=== PATIENT | male | born 1995 | race Caucasian/White ===

== ENCOUNTER 2017-01-18 07:31 | Inpatient (IN) | payer OTHER ==
[2017-01-18] MEDS ORDERED: SODIUM CHLORIDE 0.9% 1,000 ML IV STA (08:04)
[2017-01-18] MEDS ORDERED: SODIUM CHLORIDE 0.9% 2,000 ML IV STA (08:04)
[2017-01-18] MEDS ORDERED: RX INFO: IV CONTRAST WAS GIVEN 1 EACH MISC MISCELLANE PRN (08:04)
[2017-01-18] MEDS ORDERED: ACETAMINOPHEN TAB 500 MG TAB PO STA (08:05)
[2017-01-18] MEDS ORDERED: IBUPROFEN 600 MG TAB PO STA (08:07)
[2017-01-18] MEDS ORDERED: MORPHINE SULFATE 4 MG/ML SYRINGE IVP STA (08:07)
[2017-01-18] MEDS: ONDANSETRON 4 MG/2 ML VIAL IVP STA ×2 (08:13→16:20)
[2017-01-18 08:26] LABS: Basophils % (A) 0 %; CH 28.8; CHCM 35.6; Eosinophils % (A) 0 %; HCT 44.4 % (39.0-53.0); HDW 2.73; HGB 15.8 gm/dL (13.0-17.5); Luc # (Auto) 0.15; Luc % (Auto) 1; Lymphocytes # (A) 1.3 k/uL (1.0-4.8); Lymphocytes % (A) 10 %; MCHC 35.6 g/dL (31.0-37.0); MCV 81.4 fL (80.0-100.0); Mean Platelet Volume 7.3; Monocytes # (A) 0.7 k/uL (0-1.0); Monocytes % (A) 5 %; Neutrophils # (A) 10.7 k/uL (1.3-7.7); Neutrophils % (A) 83 %; RBC 5.46 m/uL (4.30-5.90); RDW 12.5 % (11.5-15.5); WBC 12.9 k/uL (3.8-10.6); WBC (Perox) 12.67
--- NOTE | 2017-01-18 08:31 | ED ---
Abdominal Pain HPI - General Chief Complaint: Abdominal Pain Stated Complaint: ABDOMINAL PAIN Time Seen by Provider: 01/18/17 07:54 Source: patient, RN notes reviewed, old records reviewed Mode of arrival: ambulatory Limitations: no limitations - History of Present Illness Initial Comments: This is a 22-year-old male presenting to emergency Department with his mother chief complaint of severe lower abdominal pain for the past day and half. Patient reports it started yesterday and became progressively worse and today. Patient states that feels like a sharp stabbing lower pain. Patient denies any significant medical history or surgical history. He reports he is generally very healthy. Patient reports that he does occasionally suffer from constipation. Initial events when he thought the pain was related to. Patient reports he feels extremely fevers and chilled and has had multiple episodes of vomiting. Denies any abnormal bowel movements lately but he did have some Metamucil last night, IDDM to go to the bathroom. - Related Data Home Medications Medication Instructions Recorded Confirmed No Known Home Medications [No 01/18/17 01/18/17 Known Home Medications] Allergies Allergy/AdvReac Type Severity Reaction Status Date / Time No Known Allergies Allergy Verified 01/18/17 08:16 Review of Systems ROS Statement: Those systems with pertinent positive or pertinent negative responses have been documented in the HPI. ROS Other: All systems not noted in ROS Statement are negative. Past Medical History Past Medical History: No Reported History History of Any Multi-Drug Resistant Organisms: None Reported Past Surgical History: No Surgical Hx Reported Past Psychological History: No Psychological Hx Reported Smoking Status: Never smoker Past Alcohol Use History: None Reported Past Drug Use History: None Reported General Exam - General Exam Comments Initial Comments: This is a ill-appearing 22-year-old male. Patient appears in discomfort. Limitations: no limitations General appearance: alert, in no apparent distress Head exam: Present: atraumatic, normocephalic, normal inspection Eye exam: Present: normal appearance, PERRL, EOMI. Absent: scleral icterus, conjunctival injection, periorbital swelling ENT exam: Present: normal exam, mucous membranes moist Neck exam: Present: normal inspection. Absent: tenderness, meningismus, lymphadenopathy Respiratory exam: Present: normal lung sounds bilaterally. Absent: respiratory distress, wheezes, rales, rhonchi, stridor Cardiovascular Exam: Present: regular rate, normal rhythm, normal heart sounds. Absent: systolic murmur, diastolic murmur, rubs, gallop, clicks GI/Abdominal exam: Present: soft, tenderness (Patient has significant periumbilical and right lower quadrant tenderness.), guarding, normal bowel sounds. Absent: distended, rigid Extremities exam: Present: normal inspection, full ROM, normal capillary refill. Absent: tenderness, pedal edema, joint swelling, calf tenderness Back exam: Present: normal inspection Neurological exam: Present: alert, oriented X3, CN II-XII intact Psychiatric exam: Present: normal affect, normal mood Skin exam: Present: warm, dry, intact, normal color. Absent: rash Course Vital Signs 01/18/17 01/18/17 01/18/17 07:34 08:04 08:46 Temperature 97.6 F 101.1 F H 99.3 F Pulse Rate 102 H 86 Respiratory 18 18 Rate Blood Pressure 116/81 115/59 O2 Sat by Pulse 97 97 Oximetry 01/18/17 09:44 Temperature Pulse Rate 78 Respiratory 18 Rate Blood Pressure 115/59 O2 Sat by Pulse 97 Oximetry - Reevaluation(s) Reevaluation #1: 01/18/17 09:57 Patient has significant improvement of his pain at this time. Patient started on IV Unasyn and Flagyl. Dr. Cyr Will discuss this case with Dr. Betancourt. Medical Decision Making - Medical Decision Making 22-year-old male presenting to emergency department with 2 days of lower abdominal pain. Patient noted to have a fever 101.1 in the emergency department. Patient is a IV fluids, lactic acid blood cultures obtained as well as rest of the labs. Patient started on 2 L bolus. Given Motrin Tylenol and morphine for pain medication. Patient was started on IV Unasyn and Flagyl. Patient did have elevated lactic acid of 2.3. Patient has evidence of leukocytosis 12.3. CT abdomen and pelvis was performed. It was a suboptimal study is patient does not have very much abdominal fat. Patient does have some free fluid in the pelvis, and dilated appendix up to 10 mm. Patient's clinical symptoms with a severe right lower quadrant pain and fevers and is consistent with acute appendicitis. Discussed case with Dr. Cyr. He will discuss this with . He'll be admitted to Dr. Betancourt for surgery. - Lab Data Result diagrams: 01/18/17 07:45 01/18/17 07:45 Lab Results 01/18/17 01/18/17 01/18/17 Range/Units 07:45 07:45 07:45 WBC 12.9 H (3.8-10.6) k/uL RBC 5.46 (4.30-5.90) m/uL Hgb 15.8 (13.0-17.5) gm/dL Hct 44.4 (39.0-53.0) % MCV 81.4 (80.0-100.0) fL MCH 29.0 (25.0-35.0) pg MCHC 35.6 (31.0-37.0) g/dL RDW 12.5 (11.5-15.5) % Plt Count 206 (150-450) k/uL Neutrophils % 83 % Lymphocytes % 10 % Monocytes % 5 % Eosinophils % 0 % Basophils % 0 % Neutrophils # 10.7 H (1.3-7.7) k/uL Lymphocytes # 1.3 (1.0-4.8) k/uL Monocytes # 0.7 (0-1.0) k/uL Eosinophils # 0.0 (0-0.7) k/uL Basophils # 0.0 (0-0.2) k/uL PT (9.0-12.0) sec INR (<1.2) APTT (22.0-30.0) sec Sodium 138 (137-145) mmol/L Potassium 4.5 (3.5-5.1) mmol/L Chloride 98 (98-107) mmol/L Carbon Dioxide 24 (22-30) mmol/L Anion Gap 16 mmol/L BUN 12 (9-20) mg/dL Creatinine 0.93 (0.66-1.25) mg/dL Est GFR (MDRD) Af Amer >60 (>60 ml/min/1.73 sqM) Est GFR (MDRD) Non-Af >60 (>60 ml/min/1.73 sqM) Glucose 136 H (74-99) mg/dL Plasma Lactic Acid Usman 2.1 H* (0.7-2.0) mmol/L Calcium 10.2 (8.4-10.2) mg/dL Total Bilirubin 2.3 H (0.2-1.3) mg/dL AST 20 (17-59) U/L ALT 21 (21-72) U/L Alkaline Phosphatase 55 (38-126) U/L Total Protein 8.6 H (6.3-8.2) g/dL Albumin 5.3 H (3.5-5.0) g/dL Amylase 40 (30-110) U/L Lipase 47 (23-300) U/L Urine Color Urine Appearance (Clear) Urine pH (5.0-8.0) Urine Protein (Negative) Urine Glucose (UA) (Negative) Urine Ketones (Negative) Urine Blood (Negative) Urine Nitrite (Negative) Urine Bilirubin (Negative) Urine Urobilinogen (<2.0) mg/dL Ur Leukocyte Esterase (Negative) Urine RBC (0-5) /hpf Urine WBC (0-5) /hpf Urine Mucus (None) /hpf Blood Type Blood Type Recheck Antibody Screen Spec Expiration Date 01/18/17 01/18/17 01/18/17 Range/Units 07:45 09:07 09:12 WBC (3.8-10.6) k/uL RBC (4.30-5.90) m/uL Hgb (13.0-17.5) gm/dL Hct (39.0-53.0) % MCV (80.0-100.0) fL MCH (25.0-35.0) pg MCHC (31.0-37.0) g/dL RDW (11.5-15.5) % Plt Count (150-450) k/uL Neutrophils % % Lymphocytes % % Monocytes % % Eosinophils % % Basophils % % Neutrophils # (1.3-7.7) k/uL Lymphocytes # (1.0-4.8) k/uL Monocytes # (0-1.0) k/uL Eosinophils # (0-0.7) k/uL Basophils # (0-0.2) k/uL PT 12.3 H (9.0-12.0) sec INR 1.2 H (<1.2) APTT 25.1 (22.0-30.0) sec Sodium (137-145) mmol/L Potassium (3.5-5.1) mmol/L Chloride (98-107) mmol/L Carbon Dioxide (22-30) mmol/L Anion Gap mmol/L BUN (9-20) mg/dL Creatinine (0.66-1.25) mg/dL Est GFR (MDRD) Af Amer (>60 ml/min/1.73 sqM) Est GFR (MDRD) Non-Af (>60 ml/min/1.73 sqM) Glucose (74-99) mg/dL Plasma Lactic Acid Usman (0.7-2.0) mmol/L Calcium (8.4-10.2) mg/dL Total Bilirubin (0.2-1.3) mg/dL AST (17-59) U/L ALT (21-72) U/L Alkaline Phosphatase (38-126) U/L Total Protein (6.3-8.2) g/dL Albumin (3.5-5.0) g/dL Amylase (30-110) U/L Lipase (23-300) U/L Urine Color Yellow Urine Appearance Clear (Clear) Urine pH 6.5 (5.0-8.0) Urine Protein Trace H (Negative) Urine Glucose (UA) Negative (Negative) Urine Ketones Negative (Negative) Urine Blood Trace H (Negative) Urine Nitrite Negative (Negative) Urine Bilirubin Negative (Negative) Urine Urobilinogen <2.0 (<2.0) mg/dL Ur Leukocyte Esterase Negative (Negative) Urine RBC 4 (0-5) /hpf Urine WBC <1 (0-5) /hpf Urine Mucus Occasional H (None) /hpf Blood Type A Positive Blood Type Recheck CABO Indicated Antibody Screen NEGATIVE Spec Expiration Date 01/21/2017 - 2307 - Radiology Data Radiology results: report reviewed Acute appendicitis cannot be excluded as detailed above. [id number] amount of free fluid within the pelvis is noted significantly more prominent than typically seen with acute appendicitis. Evaluation in bowel suboptimal secondary to lack of enteric contrast is no abdominal making suboptimal. Moderate thickening of the gastric antrum. No suspicious small or large bowel dilation. Low fecal filled cecum in the right pelvis. Appendix appears in the right pelvis it is dilated up to 10mm with mild irregular mucosal enlargement.There is some mild findings surrounding fluid bolus is present through the majority of the pelvis. Acuteappendicitis cannot be excluded given his findings. No well-formed fluid collection or abscess is present. Disposition Clinical Impression: Acute appendicitis Disposition: ADMITTED IP TO THIS [facility] Condition: Stable Referrals: Shreyas Hutchinson MD [Primary Care Provider] - 1-2 days Time of Disposition: 10:02
[2017-01-18 08:37] LABS: ALT 21 U/L (21-72); AST 20 U/L (17-59); Alkaline Phosphatase 55 U/L (38-126); Amylase 40 U/L (30-110); Anion Gap 16 mmol/L; Blood Urea Nitrogen 12 mg/dL (9-20); Calcium 10.2 mg/dL (8.4-10.2); Carbon Dioxide 24 mmol/L (22-30); Chloride 98 mmol/L (98-107); Glucose 136 mg/dL (74-99); Non-African American GFR(MDRD) >60 (>60 ml/min/1.73 sqM); Potassium 4.5 mmol/L (3.5-5.1); Sodium 138 mmol/L (137-145); Total Bilirubin 2.3 mg/dL (0.2-1.3); Total Protein 8.6 g/dL (6.3-8.2)
[2017-01-18 08:45] LABS: INR 1.2 (<1.2); Partial Thromboplastin Time 25.1 sec (22.0-30.0); Prothrombin Time 12.3 sec (9.0-12.0)
--- NOTE | 2017-01-18 08:57 | CT ---
EXAMINATION TYPE: CT abdomen pelvis w con DATE OF EXAM: 01/18/2017 COMPARISON: NONE HISTORY: Patient complains of RLQ pain, nausea, vomiting, and fever. Rule out appendicitis. CT DLP: 643 mGycm, Automated Exposure Control for Dose Reduction was Utilized. CONTRAST: CT scan of the abdomen and pelvis is performed without oral but with with IV Contrast, patient inject ed with 100 mL of Omnipaque 300. FINDINGS: LUNG BASES: No significant abnormality is appreciated. LIVER/GB: No significant abnormality is appreciated. PANCREAS: There is asymmetric fullness in the pancreatic head near axial image 29 without obvious mas s or ductal dilatation. SPLEEN: Spleen is mildly enlarged at 13.6 cm on long axis on coronal image 40 ADRENALS: No significant abnormality is seen. KIDNEYS: No significant abnormality is seen. BOWEL: Evaluation bowel is suboptimal secondary to lack of enteric contrast. In addition patient has virtually no intra-abdominal fat making evaluation suboptimal. There is nonspecific moderate wall thi ckening at level of gastric antrum near axial image 32. There is no suspicious small or large bowel d ilatation. There is low lying fecal filled cecum to the right pelvis. Appendix is identified in the r ight pelvis seen best on coronal images 37 through 50 and corresponding axial images 61 through 63. I t is dilated up to 10 mm with mild irregular mucosal enhancement. There is some ill-defined surroundi ng fluid though this is present throughout majority of pelvis. Acute appendicitis cannot be excluded given these findings. No well-formed fluid collection or abscess is present. No pneumoperitoneum is i dentified. PROSTATE/SEMINAL VESICLES: No gross abnormality seen. LYMPH NODES: No greater than 1cm abdominal or pelvic lymph nodes are appreciated. There are prominen t but subcentimeter lymph nodes in the lower abdominal mesentery. OSSEOUS STRUCTURES: No significant abnormality is seen. OTHER: There is small to moderate amount of free fluid in the pelvis seen best on axial image 64. IMPRESSION: Acute appendicitis cannot be excluded as detailed above. Small to moderate amount of free fluid in pelvis is noted slightly more prominent than typically seen with acute appendicitis.
[2017-01-18] MEDS ORDERED: metroNIDAZOLE-NS PMX 500 MG in SALINE 1 100ML.BAG IVPB STA (09:29)
[2017-01-18] MEDS ORDERED: AMPICILLIN-SULBACTAM 3 GM in SODIUM CHLORIDE 0.9% 100 ML IVPB STA (09:29)
[2017-01-18 09:39] LABS: Appearance,Urine Clear (Clear); Bilirubin,Urine Negative (Negative); Glucose,Urine (UA) Negative (Negative); Ketones,Urine Negative (Negative); Leukocyte Esterase,Urine Negative (Negative); Mucus,Urine Occasional /hpf; Nitrite,Urine Negative (Negative); PH, Urine 6.5 (5.0-8.0); Particle Count 2340; Protein,Urine Trace (Negative); RBC,Urine 4 /hpf (0-5); UA Billing (MACRO vs. MICRO) MICRO; Urobilinogen,Urine <2.0 mg/dL (<2.0); WBC,Urine <1 /hpf (0-5)
[2017-01-18] MEDS ORDERED: NALOXONE 0.4 MG/ML 1 ML VIAL IV PRN (10:02)
[2017-01-18] MEDS ORDERED: IBUPROFEN 400 MG TAB PO PRN (10:02)
[2017-01-18] MEDS ORDERED: ONDANSETRON 4 MG/2 ML VIAL IVP PRN (10:02)
[2017-01-18] MEDS ORDERED: ACETAMINOPHEN TAB 325 MG TAB PO PRN (10:02)
[2017-01-18] MEDS ORDERED: KETOROLAC 30 MG/ML 1 ML VIAL IVP PRN (10:02)
[2017-01-18 10:39] LABS: Specific Gravity,Urine >1.050 (1.001-1.035)
[2017-01-18 11:20] VITALS: BMI 16.9
--- NOTE | 2017-01-18 14:10 | P.GSHP ---
History of Present Illness H&P Date: 01/18/17 Chief Complaint: Appendicitis The patient is a 22-year-old who presented to the emergency department with severe abdominal pain today. Noticed discomfort yesterday morning. It got progressively worse. This morning it was severe and doubling him over. He feels better this afternoon. The CT scan was suggestive of acute appendicitis. He felt worse this morning with the pain doubling him over. He had not been ill previously. No previous abdominal surgeries. No nausea or vomiting. - Review of Systems All systems: negative (He does have trouble with constipation from time to time) Past Medical History Past Medical History: No Reported History History of Any Multi-Drug Resistant Organisms: None Reported Past Surgical History: No Surgical Hx Reported Past Anesthesia/Blood Transfusion Reactions: No Reported Reaction Past Psychological History: No Psychological Hx Reported Smoking Status: Never smoker Past Alcohol Use History: None Reported Past Drug Use History: None Reported - Past Family History Father Family Medical History: No Reported History Mother Family Medical History: No Reported History Medications and Allergies Home Medications Medication Instructions Recorded Confirmed Type No Known Home Medications [No 01/18/17 01/18/17 History Known Home Medications] Allergies Allergy/AdvReac Type Severity Reaction Status Date / Time No Known Allergies Allergy Verified 01/18/17 08:16 Surgical - Exam Osteopathic Statement: *. No significant issues noted on an osteopathic structural exam other than those noted in the History and Physical/Consult. Vital Signs Temp Pulse Resp BP Pulse Ox 97.6 F 102 H 18 116/81 97 01/18/17 07:34 01/18/17 07:34 01/18/17 07:34 01/18/17 07:34 01/18/17 07:34 - General well developed, well nourished, no distress - Eyes normal ocular movement - ENT normal mucosa, no hearing loss - Neck trachea midline - Respiratory normal expansion, normal respiratory effort, clear to auscultation - Cardiovascular Rhythm: regular - Abdomen Abdomen: soft, tender (Lower quadrant), bowel sounds Hernia: no umbilical - Psychiatric oriented to time, oriented to person, oriented to place, speech is normal, memory intact Results - Labs 01/18/17 07:45 01/18/17 07:45 Abnormal Lab Results - Last 24 Hours (Table) 01/18/17 01/18/17 01/18/17 Range/Units 07:45 07:45 07:45 WBC 12.9 H (3.8-10.6) k/uL Neutrophils # 10.7 H (1.3-7.7) k/uL PT (9.0-12.0) sec INR (<1.2) Glucose 136 H (74-99) mg/dL Plasma Lactic Acid Usman 2.1 H* (0.7-2.0) mmol/L Total Bilirubin 2.3 H (0.2-1.3) mg/dL Total Protein 8.6 H (6.3-8.2) g/dL Albumin 5.3 H (3.5-5.0) g/dL Ur Specific [place] (1.001-1.035) Urine Protein (Negative) Urine Blood (Negative) Urine Mucus (None) /hpf 01/18/17 01/18/17 Range/Units 07:45 09:12 WBC (3.8-10.6) k/uL Neutrophils # (1.3-7.7) k/uL PT 12.3 H (9.0-12.0) sec INR 1.2 H (<1.2) Glucose (74-99) mg/dL Plasma Lactic Acid Usman (0.7-2.0) mmol/L Total Bilirubin (0.2-1.3) mg/dL Total Protein (6.3-8.2) g/dL Albumin (3.5-5.0) g/dL Ur Specific [place] >1.050 H (1.001-1.035) Urine Protein Trace H (Negative) Urine Blood Trace H (Negative) Urine Mucus Occasional H (None) /hpf Diabetes panel 01/18/17 Range/Units 07:45 Sodium 138 (137-145) mmol/L Potassium 4.5 (3.5-5.1) mmol/L Chloride 98 (98-107) mmol/L Carbon Dioxide 24 (22-30) mmol/L BUN 12 (9-20) mg/dL Creatinine 0.93 (0.66-1.25) mg/dL Glucose 136 H (74-99) mg/dL Calcium 10.2 (8.4-10.2) mg/dL AST 20 (17-59) U/L ALT 21 (21-72) U/L Alkaline Phosphatase 55 (38-126) U/L Total Protein 8.6 H (6.3-8.2) g/dL Albumin 5.3 H (3.5-5.0) g/dL Calcium panel 01/18/17 Range/Units 07:45 Calcium 10.2 (8.4-10.2) mg/dL Albumin 5.3 H (3.5-5.0) g/dL Pituitary panel 01/18/17 Range/Units 07:45 Sodium 138 (137-145) mmol/L Potassium 4.5 (3.5-5.1) mmol/L Chloride 98 (98-107) mmol/L Carbon Dioxide 24 (22-30) mmol/L BUN 12 (9-20) mg/dL Creatinine 0.93 (0.66-1.25) mg/dL Glucose 136 H (74-99) mg/dL Calcium 10.2 (8.4-10.2) mg/dL Adrenal panel 01/18/17 Range/Units 07:45 Sodium 138 (137-145) mmol/L Potassium 4.5 (3.5-5.1) mmol/L Chloride 98 (98-107) mmol/L Carbon Dioxide 24 (22-30) mmol/L BUN 12 (9-20) mg/dL Creatinine 0.93 (0.66-1.25) mg/dL Glucose 136 H (74-99) mg/dL Calcium 10.2 (8.4-10.2) mg/dL Total Bilirubin 2.3 H (0.2-1.3) mg/dL AST 20 (17-59) U/L ALT 21 (21-72) U/L Alkaline Phosphatase 55 (38-126) U/L Total Protein 8.6 H (6.3-8.2) g/dL Albumin 5.3 H (3.5-5.0) g/dL - Imaging CT scan - abdomen: report reviewed, image reviewed Assessment and Plan (1) Acute appendicitis Status: Acute Plan: Laparoscopic appendectomy possible open. The procedure risks and complications were discussed. Questions were encouraged and answered. We'll do that for him this afternoon.
[2017-01-18] MEDS: MORPHINE SULFATE 4 MG/ML SYRINGE IV PRN (14:22)
[2017-01-18] MEDS ORDERED: IV FLUID CONTINUATION 625 ML IV ONE (15:59)
[2017-01-18] MEDS ORDERED: BUPIVACAINE-EPI 0.5%-1:200,000 10 ML VIAL SQ ONE ×2 (16:38)
[2017-01-18] MEDS ORDERED: FUROSEMIDE 10 MG/ML 2 ML VIAL ONE (16:43)
[2017-01-18] MEDS ORDERED: PROPOFOL 10 MG/ML 20 ML VIAL IV ONE (16:43)
[2017-01-18] MEDS ORDERED: GLYCOPYRROLATE 0.2 MG/ML 2 ML VIAL ONE (16:43)
[2017-01-18] MEDS ORDERED: LIDOCAINE 1% INJ 10MG/ML (20 ML MDV) ONE (16:43)
[2017-01-18] MEDS ORDERED: NEOSTIGMINE 1 MG/ML 10 ML VIAL ONE (16:43)
[2017-01-18] MEDS ORDERED: MIDAZOLAM 2 MG/2 ML VIAL ONE (16:43)
[2017-01-18] MEDS ORDERED: SUCCINYLCHOLINE CHLORIDE 100 MG/5 ML SYR IV ONE (16:43)
[2017-01-18] MEDS ORDERED: MEPERIDINE 50 MG/ML SYRINGE ONE (16:43)
[2017-01-18] MEDS ORDERED: fentaNYL (PF) 50 MCG/ML 2 ML AMP ONE (16:43)
[2017-01-18] MEDS ORDERED: ROCURONIUM BROMIDE 10 MG/ML 10 ML VIAL IV ONE (16:43)
[2017-01-18] MEDS ORDERED: LACTATED RINGERS 1,000 ML IV ONE ×2 (16:50→17:53)
[2017-01-18] MEDS ORDERED: ERTAPENEM 1 GM in SODIUM CHLORIDE 0.9% 50 ML IVPB STA (17:02)
[2017-01-18] MEDS ORDERED: HYDROcodone/APAP 5-325MG 1 EACH TAB PO PRN (17:50)
[2017-01-18] MEDS ORDERED: METOCLOPRAMIDE 5 MG/ML 2 ML VIAL IVP PRN (17:50)
[2017-01-18] MEDS ORDERED: HYDROmorphone 1 MG/ML 1 ML SYRINGE IVP PRN (17:50)
--- NOTE | 2017-01-18 17:50 | P.OP ---
Date of Procedure: 01/18/17 Preoperative Diagnosis: Acute appendicitis Postoperative Diagnosis: Acute separative appendicitis Procedure(s) Performed: Laparoscopic appendectomy with drain placement Implants: Anesthesia: ROBYN Surgeon: Radha Betancourt Estimated Blood Loss (ml): 10 Pathology: other (Appendix) Condition: stable Disposition: PACU Indications for Procedure: The patient presented with abdominal pain and CT suggestive of appendicitis Operative Findings: He has evidence of acute appendicitis with separation. No obvious perforation. There is some exudate and cloudy fluid in the paracolic gutter and cul-de- sac. A little bit over the liver. The liver diaphragm large and small bowel are otherwise normal where they were seen. Description of Procedure: The patient's taken the operative suite where he is prepped and draped in the usual sterile manner under general endotracheal anesthetic. An infraumbilical incision was made. A varies needle was placed into the abdominal cavity. Pneumoperitoneum was established with CO2 gas. Sites are chosen for accessory trochars and these are placed through small skin incisions. The abdominal and pelvic contents were examined with findings as described above. The appendix is grasped. The mesial appendix is divided with harmonic scissors to the base. The base is fairly broad. It is transected with a TRUPTI stapler. The appendix is then lysed into a specimen retrieval bag. The pelvic fluid was aspirated. The pelvis, paracolic gutter, and fluid by the liver then irrigated and aspirated. A channel drain is then placed. It's allowed to lay along the right paracolic gutter and down into the pelvis. The pneumoperitoneum was then removed. The trochars were removed. The specimen retrieval bag was removed. The fascia at the umbilicus was closed with 0 Vicryl. The skin incisions were closed with samantha. Dressings were applied. He tolerated the procedure without difficulty and was taken recovery room in satisfactory condition. According to or personnel, WERE correct.
[2017-01-18] MEDS ORDERED: D5-0.45% NACL WITH KCL 20MEQ/L 1,000 ML IV SCH (18:00)
[2017-01-18] MEDS: SODIUM CHLORIDE 0.9% 1,000 ML IV SCH ×2 (19:10→23:00)
[2017-01-18] MEDS ORDERED: PROPOFOL 1,000 MG/100 ML VIAL IV SCH (19:15)
--- NOTE | 2017-01-18 19:18 | XR ---
EXAMINATION TYPE: XR chest 1V portable DATE OF EXAM: 01/18/2017 COMPARISON: NONE HISTORY: Respiratory distress TECHNIQUE: Single upright frontal view of the chest is obtained. FINDINGS: The endotracheal tube tip projects over the mid trachea, at a level between the clavicular heads and the héctor. There is no pneumothorax. There are no other abnormal gas collection. The stomach, however, is noted to be gas-distended. The pulmonary vasculature is completely silhouetted by a severe and symmetric fine reticular pattern of increased density reaching the periphery as septal lines and associated with fissure thickening. T here are a few scattered associated areas of lung consolidation. These findings are consistent with m arked interstitial phase pulmonary edema, with concurrent alveolar phase pulmonary edema. The cardiac silhouette is normal in size. The mediastinal silhouette, and skeletal structures and sof t tissues are unremarkable. IMPRESSION: MARKED INTERSTITIAL PHASE PULMONARY EDEMA WITH CONCURRENT BILATERAL AREAS OF ALVEOLAR PHASE PULMONARY EDEMA.
[2017-01-18 19:48] LABS: ABG HCO3 26 mmol/L (21-25); ABG PCO2 49 mmHg (35-45); ABG PH 7.35 (7.35-7.45); ABG PO2 253 mmHg (83-108); ABG TCO2 26 mmol/L (19-24)
[2017-01-18] MEDS: MIDAZOLAM 2 MG/2 ML VIAL IVP ONE ×2 (20:10→20:12)
[2017-01-18 20:25] LABS: Glucose,Whole Blood 106 mg/dL (75-99)
[2017-01-18 21:59] LABS: Glucose,Whole Blood 99 mg/dL (75-99)
[2017-01-18] MEDS ORDERED: ACETAMINOPHEN IV (For NPO) 1,000 MG in EMPTY BAG 1 BAG IVPB PRN (22:00)
[2017-01-18] MEDS ORDERED: SODIUM CHLORIDE 0.9% 1,000 ML IV ONE (22:01)
--- NOTE | 2017-01-18 23:05 | CT ---
EXAM: CT Head Without Intravenous Contrast CLINICAL HISTORY: Reason: Neurologic changes, new strabismus. Recently postop appendectomy TECHNIQUE: Axial computed tomography images of the head/brain without intravenous contrast. CTDI is 42.60 mGy and DLP is 832.60 mGy-cm. This CT exam was performed using one or more of the following dose reduction techniques: automated exposure control, adjustment of the mA and/or kV according to patient size, and/or use of iterative reconstruction technique. COMPARISON: No relevant prior studies available. FINDINGS: Brain: Unremarkable. No hemorrhage. No midline shift, mass effect or edema. No identifiable acute or recent territorial infarct. Ventricles: Unremarkable. No hydrocephalus. Bones/joints: Unremarkable. No acute fracture. Soft tissues: Unremarkable. Sinuses: Unremarkable as visualized. No acute sinusitis. Mastoid air cells: Unremarkable as visualized. No mastoid effusion. Other findings: Slightly divergent gaze. IMPRESSION: No acute intracranial abnormality is seen to account for the patient's symptoms, as above.
--- NOTE | 2017-01-18 23:13 | P.CNPUL ---
History of Present Illness Consult date: 01/18/17 Requesting physician: Radha Betancourt Reason for consult: other (Postoperative respiratory failure requiring reintubation, noncardiogenic pulmonary edema.) Chief complaint: Failure to wean post appendectomy, patient was reintubated in recovery. History of present illness: This is a 22-year-old white male presented earlier today to the emergency room with severe abdominal pain of one and a half days in duration. CT of the abdomen was suggestive of acute appendicitis. Patient was in severe pain almost doubling over earlier before presenting to the ER. Patient was seen by Dr. Betancourt on consultation, and he underwent laparoscopic appendectomy. And her operative report, the patient was found to have acute appendicitis with separation, some exudate and cloudy fluid was noted in that the colic gutter and cul-de-sac. His intraoperative course was uneventful. Patient was sent to recovery, and he was extubated shortly after. However he developed worsening respiratory distress post extubation, and his chest x-ray showed evidence of pulmonary edema, felt to be most likely noncardiogenic in nature, and most likely it is a negative pressure pulmonary edema. Although the possibility of acute lung injury is not entirely ruled out, but felt to be less likely. Patient was reintubated shortly after he was extubated, I was notified about the patient's from anesthesia staff, and arrangements were made to transfer the patient to the ICU. Upon arrival to the ICU, patient was noted to be on the hypotensive side, hence I was notified and I recommended fluid boluses. Patient was also noted to have some posturing and the nurse taking care of the patient was concerned about inferior drooping of the left eyeball. Based on the information given to me by the nurse taking care of the patient, I recommended immediate neurological consultation, CT of the brain, and I came in to evaluate the patient. Upon my arrival, patient was on propofol drip, I placed the drip on hold for about 10 minutes, patient was awakened, he was admitted agitated, but he was able to follow simple instructions, no significant neurological findings were noted. Patient will be placed back on propofol at a lower dose, and we will continue antibiotics as ordered by the admitting physician/Kayla. Patient received earlier in the ER some Unasyn and Flagyl. Review of Systems ROS unobtainable: due to endotracheal tube Past Medical History Past Medical History: No Reported History History of Any Multi-Drug Resistant Organisms: None Reported Past Surgical History: No Surgical Hx Reported Past Anesthesia/Blood Transfusion Reactions: No Reported Reaction Past Psychological History: No Psychological Hx Reported Smoking Status: Never smoker Past Alcohol Use History: None Reported Past Drug Use History: None Reported - Past Family History Father Family Medical History: No Reported History Mother Family Medical History: No Reported History Medications and Allergies Home Medications Medication Instructions Recorded Confirmed Type No Known Home Medications [No 01/18/17 01/18/17 History Known Home Medications] Allergies Allergy/AdvReac Type Severity Reaction Status Date / Time No Known Allergies Allergy Verified 01/18/17 08:16 Physical Exam Vitals: Vital Signs Temp Pulse Pulse Pulse Resp BP BP 01/18/17 21:00 99.3 F 96 89/43 01/18/17 20:40 99.7 F H 97 14 89/43 01/18/17 20:23 94/49 01/18/17 19:45 71 14 99/51 01/18/17 19:30 99.2 F 87 14 90/50 01/18/17 16:20 98.5 F 72 16 103/48 01/18/17 15:00 98.1 F 72 16 102/56 01/18/17 11:14 98.2 F 76 16 111/67 01/18/17 10:39 100.2 F H 77 18 109/53 01/18/17 09:44 78 18 115/59 01/18/17 08:46 99.3 F 86 18 115/59 01/18/17 08:04 101.1 F H 01/18/17 07:34 97.6 F 102 H 18 116/81 Pulse Ox 01/18/17 21:00 98 01/18/17 20:40 97 01/18/17 20:23 100 01/18/17 19:45 100 01/18/17 19:30 100 01/18/17 16:20 99 01/18/17 15:00 97 01/18/17 11:14 97 01/18/17 10:39 96 01/18/17 09:44 97 01/18/17 08:46 97 01/18/17 08:04 01/18/17 07:34 97 Intake and Output 01/18/17 01/18/17 01/19/17 14:59 22:59 06:59 Intake Total 300 2025 Output Total 1340 Balance 300 685 Intake: IV 2025 Sodium Chloride 0.9% 1, 50 000 ml @ 120 mls/hr IV . Q8H20M COUNTS INCLUDE 234 BEDS AT [facility] Rx#:[id number] Intake, IV Titration 300 Amount Sodium Chloride 0.9% 1, 300 000 ml @ 100 mls/hr IV . Q10H [facility] Rx#:[id number] Output: Drainage 20 Abdomen 20 Urine 1310 Estimated Blood Loss 10 Other: Weight 56.699 kg Patient Weight 01/19/17 06:59 Weight 56.699 kg Physical Exam: Revealed a 22-year-old white male in no distress, on mechanical ventilation, sedated, but arousable and followed simple instructions. HEENT:[Neck is supple.] [No neck masses.] [No thyromegaly.] [No JVD.] Chest: [Minimal fine crackles at the bases were noted. Cardiac Exam: [Normal S1 and S2, no S3 gallop, no murmur.] Abdomen: [Postsurgical, Soft, nontender, no megaly, no rebound, no guarding, diminished bowel sounds] Extremities: [No clubbing, no edema, no cyanosis.] Neurological Exam: Patient was noted to be arousable, followed simple instructions, no gross focal neurologic deficit was noted. However his neurological examination was suboptimal because of propofol drip was only discontinued for about 10 minutes. Results - Laboratory Findings CBC and BMP: 01/18/17 07:45 01/18/17 07:45 ABG ABG pH 7.35 (7.35-7.45) 01/18/17 19:40 ABG pCO2 49 mmHg (35-45) H 01/18/17 19:40 ABG pO2 253 mmHg (83-108) H 01/18/17 19:40 ABG O2 Saturation 99.0 % (94-97) H 01/18/17 19:40 PT/INR, D-dimer PT 12.3 sec (9.0-12.0) H 01/18/17 07:45 INR 1.2 (<1.2) H 01/18/17 07:45 Abnormal lab findings: Abnormal Labs 01/18/17 01/18/17 01/18/17 07:45 07:45 07:45 WBC 12.9 H Neutrophils # 10.7 H PT INR ABG pCO2 ABG pO2 ABG HCO3 ABG Total CO2 ABG O2 Saturation Glucose 136 H POC Glucose (mg/dL) Plasma Lactic Acid [place] 2.1 H* Total Bilirubin 2.3 H Total Protein 8.6 H Albumin 5.3 H Ur Specific [place] Urine Protein Urine Blood Urine Mucus 01/18/17 01/18/17 01/18/17 07:45 09:12 19:40 WBC Neutrophils # PT 12.3 H INR 1.2 H ABG pCO2 49 H ABG pO2 253 H ABG HCO3 26 H ABG Total CO2 26 H ABG O2 Saturation 99.0 H Glucose POC Glucose (mg/dL) Plasma Lactic Acid [place] Total Bilirubin Total Protein Albumin Ur Specific [place] >1.050 H Urine Protein Trace H Urine Blood Trace H Urine Mucus Occasional H 01/18/17 20:23 WBC Neutrophils # PT INR ABG pCO2 ABG pO2 ABG HCO3 ABG Total CO2 ABG O2 Saturation Glucose POC Glucose (mg/dL) 106 H Plasma Lactic Acid Us[place] Total Bilirubin Total Protein Albumin Ur Specific [place] Urine Protein Urine Blood Urine Mucus - Diagnostic Findings Chest x-ray: image reviewed (Chest x-ray in the recovery room is consistent with pulmonary edema, most likely noncardiogenic in nature, and most likely secondary to negative pressure pulmonary edema.) Assessment and Plan Plan: Impression: 1 postoperative respiratory failure requiring reintubation and mechanical ventilation, secondary to negative pressure pulmonary edema, although the possibility of acute lung injury from abdominal sepsis is not entirely ruled out but felt to be less likely. This is unexpected. 2 status post laparoscopic appendectomy for acute appendicitis, postoperative day #0. 3 questionable postoperative neurological changes noted by the nursing staff upon admission to the ICU, hence CT of the brain and neurological consultations are pending. Recommendation: Continue supportive care measures, continue mechanical ventilation, continue sedation, follow ICU orders as per protocol, continue antibiotics, GI and DVT prophylaxis, will likely address weaning and extubation in a.m. depending on the chest x-ray findings, and depending on the overall clinical status of the patient. Time with Patient: Greater than 30
[2017-01-18] MEDS ORDERED: SODIUM CHLORIDE 0.9% 500 ML IV ONE (23:16)
[2017-01-18 23:17] LABS: ABG Base Excess -1.9 mmol/L; ABG HCO3 24 mmol/L (21-25); ABG PCO2 49 mmHg (35-45); ABG PH 7.31 (7.35-7.45); ABG PO2 135 mmHg (83-108); ABG TCO2 25 mmol/L (19-24)
[2017-01-18 23:53] LABS: CH 30.1; CHCM 35.8; HCT 34.6 % (39.0-53.0); HDW 2.76; MCH 29.1 pg (25.0-35.0); MCHC 34.5 g/dL (31.0-37.0); MCV 84.4 fL (80.0-100.0); Mean Platelet Volume 7.9; RDW 13.4 % (11.5-15.5)
--- NOTE | 2017-01-19 | XR ---
EXAM: XR Chest, 1 View CLINICAL HISTORY: Reason: neg pressure pulm edema TECHNIQUE: Frontal view of the chest. COMPARISON: Earlier exam at 1847 hrs. the same day. FINDINGS: Lungs: Interval improvement in diffuse pulmonary edema like pattern along with some improvement in aeration. Pleural space: No definite pleural effusion or pneumothorax is seen. Heart: Unremarkable. No cardiomegaly. Mediastinum: Unremarkable. Bones/joints: Mild rightward curvature of the thoracic spine that may be positional. Tubes, lines and devices: ET tube in satisfactory position. New NG tube extends down the esophagus into the stomach, tip not included. Upper abdomen: Where included the stomach is no longer distended, underlying the left diaphragm. IMPRESSION: 1. Interval intubation with new NG tube, as above. 2. Interval improvement in pulmonary edema like pattern.
[2017-01-19 00:02] LABS: HGB 11.9 gm/dL (13.0-17.5)
[2017-01-19 00:04] LABS: Anion Gap 6 mmol/L; Blood Urea Nitrogen 11 mg/dL (9-20); Calcium 7.4 mg/dL (8.4-10.2); Carbon Dioxide 24 mmol/L (22-30); Chloride 103 mmol/L (98-107); Glucose 94 mg/dL (74-99); Magnesium 1.2 mg/dL (1.6-2.3); Non-African American GFR(MDRD) >60 (>60 ml/min/1.73 sqM); Phosphorous 2.8 mg/dL (2.5-4.5); Potassium 3.9 mmol/L (3.5-5.1); Sodium 133 mmol/L (137-145)
[2017-01-19] MEDS ORDERED: Potassium Replacement Protocol 1 EACH MISC MISCELLANE PRN (01:39)
[2017-01-19] MEDS ORDERED: Magnesium Replacement Protocol 1 EACH MISC MISCELLANE PRN (01:39)
[2017-01-19] MEDS: MORPHINE SULFATE 4 MG/ML SYRINGE IV PRN (02:32)
[2017-01-19] MEDS: MAGNESIUM SULFATE-D5W PMX 1 GM in DEXTROSE/WATER 1 100ML.BAG IVPB SCH ×3 (04:46→09:11)
[2017-01-19 05:44] LABS: Basophils % (A) 0 %; CH 29.9; CHCM 35.6; Eosinophils % (A) 0 %; HCT 33.5 % (39.0-53.0); HDW 2.75; HGB 11.8 gm/dL (13.0-17.5); Luc # (Auto) 0.06; Luc % (Auto) 1; Lymphocytes # (A) 0.5 k/uL (1.0-4.8); Lymphocytes % (A) 9 %; MCH 29.7 pg (25.0-35.0); MCHC 35.2 g/dL (31.0-37.0); MCV 84.4 fL (80.0-100.0); Mean Platelet Volume 7.7; Monocytes # (A) 0.3 k/uL (0-1.0); Monocytes % (A) 5 %; Neutrophils % (A) 85 %; RBC 3.97 m/uL (4.30-5.90); RDW 13.6 % (11.5-15.5); WBC 5.9 k/uL (3.8-10.6); WBC (Perox) 6.57
[2017-01-19 05:55] LABS: Anion Gap 6 mmol/L; Blood Urea Nitrogen 11 mg/dL (9-20); Calcium 7.8 mg/dL (8.4-10.2); Carbon Dioxide 25 mmol/L (22-30); Chloride 102 mmol/L (98-107); Glucose 108 mg/dL (74-99); Magnesium 1.9 mg/dL (1.6-2.3); Non-African American GFR(MDRD) >60 (>60 ml/min/1.73 sqM); Phosphorous 3.2 mg/dL (2.5-4.5); Sodium 133 mmol/L (137-145)
[2017-01-19] MEDS ORDERED: NALOXONE 0.4 MG/ML 1 ML VIAL IV PRN (06:51)
--- NOTE | 2017-01-19 07:27 | XR ---
EXAMINATION TYPE: XR chest 1V portable DATE OF EXAM: 01/19/2017 CLINICAL HISTORY: Difficulty breathing progress study. Negative pressure pulmonary edema per order. TECHNIQUE: Single AP portable upright view of the chest is obtained. COMPARISON: Chest x-rays from one day earlier FINDINGS: An endotracheal tube and orogastric tube are stable in appearance. Cardiac silhouette size is stable and within normal limits. Central infrahilar opacities bilaterally are redemonstrated. The re is more focal right upper lung apical opacity redemonstrated. No large pleural effusion or pneumot horax is seen bilaterally. Osseous structures are intact. IMPRESSION: Overall stable findings, bilateral central edema and/or infiltrates with more focal rig ht apical infiltrate and/or edema noted.
[2017-01-19] MEDS: PANTOPRAZOLE 40 MG/10 ML VIAL IV SCH (09:11)
[2017-01-19] MEDS: SODIUM CHLORIDE 0.9% 1,000 ML IV SCH ×2 (09:11→17:38)
--- NOTE | 2017-01-19 11:37 | P.PN ---
Subjective Principal diagnosis: Acute suppurative appendicitis, negative pressure pulmonary edema The patient is seen on rounds. He was able to be extubated this morning. He is having minimal abdominal discomfort. No nausea or vomiting. No shortness of breath. Objective - Vital Signs Vital signs: Vital Signs Temp 100.0 F H 01/19/17 08:00 Pulse 74 01/19/17 11:00 Resp 18 01/19/17 11:00 BP 108/60 01/19/17 11:00 Pulse Ox 97 01/19/17 11:00 Intake & Output 01/18/17 01/19/17 01/19/17 18:59 06:59 18:59 Intake Total 1925 2730.278 600 Output Total 70 1970 745 Balance 1855 760.278 -145 Weight 56.699 kg 94.5 kg Intake: IV 1625 2700 600 Magnesium Sulfate-D5w Pmx 200 100 1 gm In Dextrose/Water 1 100ml.bag @ 100 mls/hr IVPB Q1H [facility] Rx#: [id number] Sodium Chloride 0.9% 1, 1150 500 000 ml @ 100 mls/hr IV . Q10H [facility] Rx#:[id number] Sodium Chloride 0.9% 1, 1000 000 ml @ 999 mls/hr IV . Q1H1M ONE Rx#:[id number] Intake, IV Titration 300 30.278 Amount Propofol 1,000 mg In 100 30.278 ml @ Titrate IV .Q0M [facility] Rx#:[id number] Sodium Chloride 0.9% 1, 300 000 ml @ 100 mls/hr IV . Q10H [facility] Rx#:[id number] Output: Drainage 20 120 Abdomen 20 120 Urine 60 1950 625 Estimated Blood Loss 10 Other: Voiding Method Indwelling Catheter Indwelling Catheter - Constitutional General appearance: Present: cooperative, no acute distress - Respiratory Respiratory: bilateral: CTA, diminished (Minimally), other (A few faint crackles ) - Cardiovascular Rhythm: regular - Gastrointestinal General gastrointestinal: Present: normal bowel sounds, soft Localized gastrointestinal: surgical scar: diffuse (Dressings are intact. Small amount of serosanguineous drainage. MINDI is serosanguineous.) - Labs CBC & Chem 7: 01/19/17 05:12 01/19/17 05:12 Labs: Abnormal Lab Results - Last 24 Hours (Table) 01/18/17 01/18/17 01/18/17 Range/Units 19:40 20:23 22:00 RBC (4.30-5.90) m/uL Hgb (13.0-17.5) gm/dL Hct (39.0-53.0) % Plt Count (150-450) k/uL Lymphocytes # (1.0-4.8) k/uL ABG pH 7.31 L (7.35-7.45) ABG pCO2 49 H 49 H (35-45) mmHg ABG pO2 253 H 135 H (83-108) mmHg ABG HCO3 26 H (21-25) mmol/L ABG Total CO2 26 H 25 H (19-24) mmol/L ABG O2 Saturation 99.0 H 98.0 H (94-97) % Sodium (137-145) mmol/L Glucose (74-99) mg/dL POC Glucose (mg/dL) 106 H (75-99) mg/dL Calcium (8.4-10.2) mg/dL Magnesium (1.6-2.3) mg/dL TSH (0.465-4.680) mIU/L 01/18/17 01/18/17 01/19/17 Range/Units 23:28 23:28 05:12 RBC 4.10 L 3.97 L (4.30-5.90) m/uL Hgb 11.9 L D 11.8 L (13.0-17.5) gm/dL Hct 34.6 L 33.5 L (39.0-53.0) % Plt Count 118 L 109 L (150-450) k/uL Lymphocytes # 0.5 L (1.0-4.8) k/uL ABG pH (7.35-7.45) ABG pCO2 (35-45) mmHg ABG pO2 (83-108) mmHg ABG HCO3 (21-25) mmol/L ABG Total CO2 (19-24) mmol/L ABG O2 Saturation (94-97) % Sodium 133 L (137-145) mmol/L Glucose (74-99) mg/dL POC Glucose (mg/dL) (75-99) mg/dL Calcium 7.4 L (8.4-10.2) mg/dL Magnesium 1.2 L (1.6-2.3) mg/dL TSH 4.850 H (0.465-4.680) mIU/L 01/19/17 Range/Units 05:12 RBC (4.30-5.90) m/uL Hgb (13.0-17.5) gm/dL Hct (39.0-53.0) % Plt Count (150-450) k/uL Lymphocytes # (1.0-4.8) k/uL ABG pH (7.35-7.45) ABG pCO2 (35-45) mmHg ABG pO2 (83-108) mmHg ABG HCO3 (21-25) mmol/L ABG Total CO2 (19-24) mmol/L ABG O2 Saturation (94-97) % Sodium 133 L (137-145) mmol/L Glucose 108 H (74-99) mg/dL POC Glucose (mg/dL) (75-99) mg/dL Calcium 7.8 L (8.4-10.2) mg/dL Magnesium (1.6-2.3) mg/dL TSH (0.465-4.680) mIU/L Microbiology - Last 24 Hours (Table) 01/18/17 07:45 Blood Culture - Preliminary Blood No Growth after 24 hours Assessment and Plan (1) Acute appendicitis Status: Acute (2) Non-cardiogenic pulmonary edema Status: Acute Plan: Clinically the patient is much improved this morning. He's been extubated. We' ll trial him on swallows of liquids. Start a clear liquid diet if he is able to tolerate that. Remove the [place] catheter. Surgically stable for transfer to floor when okay with Dr. Ventura. Continue IV antibiotics over the weekend. Likely discharge early next week on oral antibiotics.
--- NOTE | 2017-01-19 12:04 | P.PN ---
Subjective Principal diagnosis: Postoperative respiratory failure secondary to negative pressure pulmonary edema This is a 22-year-old white male presented earlier today to the emergency room with severe abdominal pain of one and a half days in duration. CT of the abdomen was suggestive of acute appendicitis. Patient was in severe pain almost doubling over earlier before presenting to the ER. Patient was seen by Dr. Betancourt on consultation, and he underwent laparoscopic appendectomy. And her operative report, the patient was found to have acute appendicitis with separation, some exudate and cloudy fluid was noted in that the colic gutter and cul-de-sac. His intraoperative course was uneventful. Patient was sent to recovery, and he was extubated shortly after. However he developed worsening respiratory distress post extubation, and his chest x-ray showed evidence of pulmonary edema, felt to be most likely noncardiogenic in nature, and most likely it is a negative pressure pulmonary edema. Although the possibility of acute lung injury is not entirely ruled out, but felt to be less likely. Patient was reintubated shortly after he was extubated, I was notified about the patient's from anesthesia staff, and arrangements were made to transfer the patient to the ICU. Upon arrival to the ICU, patient was noted to be on the hypotensive side, hence I was notified and I recommended fluid boluses. Patient was also noted to have some posturing and the nurse taking care of the patient was concerned about inferior drooping of the left eyeball. Based on the information given to me by the nurse taking care of the patient, I recommended immediate neurological consultation, CT of the brain, and I came in to evaluate the patient. Upon my arrival, patient was on propofol drip, I placed the drip on hold for about 10 minutes, patient was awakened, he was admitted agitated, but he was able to follow simple instructions, no significant neurological findings were noted. Patient will be placed back on propofol at a lower dose, and we will continue antibiotics as ordered by the admitting physician/Kayla. Patient received earlier in the ER some Unasyn and Flagyl. Patient was reevaluated today on 01/19/2017, family members were at bedside, patient remained on mechanical ventilation overnight. Chest x-ray is showing improvement in his pulmonary edema, but not completely resolved. Clinically the patient was doing well, and his weaning parameters were good. Patient has been off propofol for the last few hours, and he was doing well on CPAP. After reviewing the chest x-ray, and reviewing his labs, I discussed his condition with family members including his mother, and went ahead and extubated the patient. I remained at bedside evaluating the patient post extubation, and he tolerated the extubation quite well. Neurologically, the patient had no focal neurologic deficits. Chest x-ray continues to bother me but definitely improved compared to chest x-ray post surgery yesterday. Labs were reviewed, CBC was relatively unremarkable. ABG earlier was reviewed and was unremarkable. Basic metabolic profile was also reviewed and unremarkable. Objective - Vital Signs Vital signs: Vital Signs Temp 100.0 F H 01/19/17 08:00 Pulse 74 01/19/17 11:00 Resp 18 01/19/17 11:00 BP 108/60 01/19/17 11:00 Pulse Ox 97 01/19/17 11:00 Intake & Output 01/18/17 01/19/17 01/19/17 18:59 06:59 18:59 Intake Total 1925 2730.278 600 Output Total 70 1970 745 Balance 1855 760.278 -145 Weight 56.699 kg 94.5 kg Intake: IV 1625 2700 600 Magnesium Sulfate-D5w Pmx 200 100 1 gm In Dextrose/Water 1 100ml.bag @ 100 mls/hr IVPB Q1H [facility] Rx#: [id number] Sodium Chloride 0.9% 1, 1150 500 000 ml @ 100 mls/hr IV . Q10H [facility] Rx#:[id number] Sodium Chloride 0.9% 1, 1000 000 ml @ 999 mls/hr IV . Q1H1M ONE Rx#:[id number] Intake, IV Titration 300 30.278 Amount Propofol 1,000 mg In 100 30.278 ml @ Titrate IV .Q0M [facility] Rx#:[id number] Sodium Chloride 0.9% 1, 300 000 ml @ 100 mls/hr IV . Q10H [facility] Rx#:[id number] Output: Drainage 20 120 Abdomen 20 120 Urine 60 1950 625 Estimated Blood Loss 10 Other: Voiding Method Indwelling Catheter Indwelling Catheter - Exam Physical Exam: Revealed a 22-year-old white male in no distress, on mechanical ventilation, awake, in no distress. HEENT:[Neck is supple.] [No neck masses.] [No thyromegaly.] [No JVD.] Chest: [Minimal fine crackles at the bases were noted. Cardiac Exam: [Normal S1 and S2, no S3 gallop, no murmur.] Abdomen: [Postsurgical, Soft, nontender, no megaly, no rebound, no guarding, diminished bowel sounds] Extremities: [No clubbing, no edema, no cyanosis.] Neurological Exam: Patient was noted to be arousable, followed simple instructions, no gross focal neurologic deficit was noted. - Labs CBC & Chem 7: 01/19/17 05:12 01/19/17 05:12 Labs: Abnormal Lab Results - Last 24 Hours (Table) 01/18/17 01/18/17 01/18/17 Range/Units 19:40 20:23 22:00 RBC (4.30-5.90) m/uL Hgb (13.0-17.5) gm/dL Hct (39.0-53.0) % Plt Count (150-450) k/uL Lymphocytes # (1.0-4.8) k/uL ABG pH 7.31 L (7.35-7.45) ABG pCO2 49 H 49 H (35-45) mmHg ABG pO2 253 H 135 H (83-108) mmHg ABG HCO3 26 H (21-25) mmol/L ABG Total CO2 26 H 25 H (19-24) mmol/L ABG O2 Saturation 99.0 H 98.0 H (94-97) % Sodium (137-145) mmol/L Glucose (74-99) mg/dL POC Glucose (mg/dL) 106 H (75-99) mg/dL Calcium (8.4-10.2) mg/dL Magnesium (1.6-2.3) mg/dL TSH (0.465-4.680) mIU/L 01/18/17 01/18/17 01/19/17 Range/Units 23:28 23:28 05:12 RBC 4.10 L 3.97 L (4.30-5.90) m/uL Hgb 11.9 L D 11.8 L (13.0-17.5) gm/dL Hct 34.6 L 33.5 L (39.0-53.0) % Plt Count 118 L 109 L (150-450) k/uL Lymphocytes # 0.5 L (1.0-4.8) k/uL ABG pH (7.35-7.45) ABG pCO2 (35-45) mmHg ABG pO2 (83-108) mmHg ABG HCO3 (21-25) mmol/L ABG Total CO2 (19-24) mmol/L ABG O2 Saturation (94-97) % Sodium 133 L (137-145) mmol/L Glucose (74-99) mg/dL POC Glucose (mg/dL) (75-99) mg/dL Calcium 7.4 L (8.4-10.2) mg/dL Magnesium 1.2 L (1.6-2.3) mg/dL TSH 4.850 H (0.465-4.680) mIU/L 01/19/17 Range/Units 05:12 RBC (4.30-5.90) m/uL Hgb (13.0-17.5) gm/dL Hct (39.0-53.0) % Plt Count (150-450) k/uL Lymphocytes # (1.0-4.8) k/uL ABG pH (7.35-7.45) ABG pCO2 (35-45) mmHg ABG pO2 (83-108) mmHg ABG HCO3 (21-25) mmol/L ABG Total CO2 (19-24) mmol/L ABG O2 Saturation (94-97) % Sodium 133 L (137-145) mmol/L Glucose 108 H (74-99) mg/dL POC Glucose (mg/dL) (75-99) mg/dL Calcium 7.8 L (8.4-10.2) mg/dL Magnesium (1.6-2.3) mg/dL TSH (0.465-4.680) mIU/L Microbiology - Last 24 Hours (Table) 01/18/17 07:45 Blood Culture - Preliminary Blood No Growth after 24 hours Assessment and Plan Plan: Impression: 1 postoperative respiratory failure requiring reintubation and mechanical ventilation, secondary to negative pressure pulmonary edema, although the possibility of acute lung injury from abdominal sepsis is not entirely ruled out but felt to be less likely. This is unexpected. 2 status post laparoscopic appendectomy for acute appendicitis, postoperative day #1 3 questionable postoperative neurological changes noted by the nursing staff upon admission to the ICU, hence CT of the brain was unremarkable, and a neurological consultation was canceled. Postextubation neurological exam was relatively unremarkable. Recommendation: Continue supportive care measures, a shunt was extubated uneventfully, will continue present course of treatment including antibiotics, incentive spirometry, we will monitor in the ICU for the next few hours and we' ll likely transfer to a regular medical floor repeat chest x-ray in a.m. Early ambulation. Discharge planning most likely over the weekend. Critical care time is 34 minutes. Time with Patient: Greater than 30
[2017-01-19 17:27] LABS: Glucose,Whole Blood 84 mg/dL (75-99)
[2017-01-19] MEDS: ERTAPENEM 1 GM in SODIUM CHLORIDE 0.9% 50 ML IVPB SCH (17:35)
[2017-01-19] MEDS: HYDROcodone/APAP 5-325MG 1 EACH TAB PO PRN (19:04)
[2017-01-20] MEDS: SODIUM CHLORIDE 0.9% 1,000 ML IV SCH ×2 (02:24→07:31)
[2017-01-20] MEDS: HYDROcodone/APAP 5-325MG 1 EACH TAB PO PRN ×2 (07:26→15:26)
[2017-01-20] MEDS: PANTOPRAZOLE 40 MG/10 ML VIAL IV SCH (07:28)
[2017-01-20 07:39] LABS: Basophils % (A) 0 %; Eosinophils % (A) 0 %; HCT 32.8 % (39.0-53.0); HDW 2.88; HGB 11.4 gm/dL (13.0-17.5); Luc # (Auto) 0.12; Luc % (Auto) 2; Lymphocytes # (A) 0.6 k/uL (1.0-4.8); Lymphocytes % (A) 11 %; MCH 29.1 pg (25.0-35.0); MCHC 34.8 g/dL (31.0-37.0); MCV 83.7 fL (80.0-100.0); Mean Platelet Volume 7.6; Monocytes # (A) 0.4 k/uL (0-1.0); Monocytes % (A) 8 %; Neutrophils % (A) 79 %; RBC 3.91 m/uL (4.30-5.90); RDW 13.2 % (11.5-15.5); WBC 5.1 k/uL (3.8-10.6); WBC (Perox) 4.95
[2017-01-20 07:59] LABS: Anion Gap 8 mmol/L; Blood Urea Nitrogen 11 mg/dL (9-20); Calcium 8.1 mg/dL (8.4-10.2); Carbon Dioxide 23 mmol/L (22-30); Chloride 105 mmol/L (98-107); Glucose 81 mg/dL (74-99); Magnesium 1.8 mg/dL (1.6-2.3); Non-African American GFR(MDRD) >60 (>60 ml/min/1.73 sqM); Phosphorous 1.8 mg/dL (2.5-4.5); Sodium 136 mmol/L (137-145)
--- NOTE | 2017-01-20 08:18 | XR ---
EXAMINATION TYPE: XR chest 1V DATE OF EXAM: 01/20/2017 HISTORY: pulmonary edema. REFERENCE: Previous study dated 01/19/2017. FINDINGS: The patient has been extubated. The NG tube has been removed. Previously described airspace disease has resolved. The heart is not enlarged. Pleural spaces are nya ar. IMPRESSION: RESOLUTION OF THE PATIENT'S BILATERAL INFILTRATES.
--- NOTE | 2017-01-20 13:43 | P.PN ---
Subjective Principal diagnosis: Postoperative respiratory failure secondary to negative pressure pulmonary edema This is a 22-year-old white male presented earlier today to the emergency room with severe abdominal pain of one and a half days in duration. CT of the abdomen was suggestive of acute appendicitis. Patient was in severe pain almost doubling over earlier before presenting to the ER. Patient was seen by Dr. Betancourt on consultation, and he underwent laparoscopic appendectomy. And her operative report, the patient was found to have acute appendicitis with separation, some exudate and cloudy fluid was noted in that the colic gutter and cul-de-sac. His intraoperative course was uneventful. Patient was sent to recovery, and he was extubated shortly after. However he developed worsening respiratory distress post extubation, and his chest x-ray showed evidence of pulmonary edema, felt to be most likely noncardiogenic in nature, and most likely it is a negative pressure pulmonary edema. Although the possibility of acute lung injury is not entirely ruled out, but felt to be less likely. Patient was reintubated shortly after he was extubated, I was notified about the patient's from anesthesia staff, and arrangements were made to transfer the patient to the ICU. Upon arrival to the ICU, patient was noted to be on the hypotensive side, hence I was notified and I recommended fluid boluses. Patient was also noted to have some posturing and the nurse taking care of the patient was concerned about inferior drooping of the left eyeball. Based on the information given to me by the nurse taking care of the patient, I recommended immediate neurological consultation, CT of the brain, and I came in to evaluate the patient. Upon my arrival, patient was on propofol drip, I placed the drip on hold for about 10 minutes, patient was awakened, he was admitted agitated, but he was able to follow simple instructions, no significant neurological findings were noted. Patient will be placed back on propofol at a lower dose, and we will continue antibiotics as ordered by the admitting physician/Kayla. Patient received earlier in the ER some Unasyn and Flagyl. Patient was reevaluated today on 01/19/2017, family members were at bedside, patient remained on mechanical ventilation overnight. Chest x-ray is showing improvement in his pulmonary edema, but not completely resolved. Clinically the patient was doing well, and his weaning parameters were good. Patient has been off propofol for the last few hours, and he was doing well on CPAP. After reviewing the chest x-ray, and reviewing his labs, I discussed his condition with family members including his mother, and went ahead and extubated the patient. I remained at bedside evaluating the patient post extubation, and he tolerated the extubation quite well. Neurologically, the patient had no focal neurologic deficits. Chest x-ray continues to bother me but definitely improved compared to chest x-ray post surgery yesterday. Labs were reviewed, CBC was relatively unremarkable. ABG earlier was reviewed and was unremarkable. Basic metabolic profile was also reviewed and unremarkable. She is seen again today 01/20/2017 in follow-up in the surgical floor. He is awake and alert in no acute distress. He is maintaining good O2 saturations in the low 90s on room air. His chest x-ray reveals resolution the bilateral infiltrates. He's been afebrile. Blood cultures reveal no growth. He is maintained on ertapenem. No leukocytosis. Hemoglobin stable at 11.4. Objective - Vital Signs Vital signs: Vital Signs Temp 98.7 F 01/20/17 07:24 Pulse 94 01/20/17 07:24 Resp 16 01/20/17 07:32 BP 100/52 01/20/17 07:24 Pulse Ox 92 L 01/20/17 07:24 Intake & Output 01/19/17 01/20/17 01/20/17 18:59 06:59 18:59 Intake Total 1000 Output Total 1520 500 Balance -520 -500 Intake: IV 1000 Magnesium Sulfate-D5w Pmx 100 1 gm In Dextrose/Water 1 100ml.bag @ 100 mls/hr IVPB Q1H [facility] Rx#: [id number] Sodium Chloride 0.9% 1, 900 000 ml @ 100 mls/hr IV . Q10H [facility] Rx#:[id number] Output: Drainage 120 Abdomen 120 Urine 1400 500 Other: Voiding Method Indwelling Catheter Urinal Toilet # Voids 1 - Exam GENERAL EXAM: Alert, comfortable in no apparent distress. HEAD: Normocephalic. EYES: Normal reaction of pupils, equal size. NOSE: Clear with pink turbinates. THROAT: No erythema or exudates. NECK: No masses, no JVD. CHEST: No chest wall deformity. LUNGS: Equal air entry with no crackles, wheeze, rhonchi or dullness. CVS: S1 and S2 normal with no audible murmurs, regular rhythm. ABDOMEN: No hepatosplenomegaly, normal bowel sounds, no guarding or rigidity. SPINE: No scoliosis or deformity SKIN: No rashes CENTRAL NERVOUS SYSTEM: No focal deficits, tone is normal in all 4 extremities. - Labs CBC & Chem 7: 01/20/17 07:03 01/20/17 07:03 Labs: Abnormal Lab Results - Last 24 Hours (Table) 01/20/17 01/20/17 Range/Units 07:03 07:03 RBC 3.91 L (4.30-5.90) m/uL Hgb 11.4 L (13.0-17.5) gm/dL Hct 32.8 L (39.0-53.0) % Plt Count 131 L (150-450) k/uL Lymphocytes # 0.6 L (1.0-4.8) k/uL Sodium 136 L (137-145) mmol/L Calcium 8.1 L (8.4-10.2) mg/dL Phosphorus 1.8 L (2.5-4.5) mg/dL Microbiology - Last 24 Hours (Table) 01/18/17 07:45 Blood Culture - Preliminary Blood No Growth after 48 hours 01/18/17 23:28 Blood Culture - Preliminary Blood No Growth after 24 hours Assessment and Plan Plan: Impression: 1 postoperative respiratory failure requiring reintubation and mechanical ventilation, secondary to negative pressure pulmonary edema, although the possibility of acute lung injury from abdominal sepsis is not entirely ruled out but felt to be less likely. This is unexpected. On 01/30/2017 the patient's chest x-ray shows resolution of the by basilar infiltrates. 2 status post laparoscopic appendectomy for acute appendicitis, postoperative day #2 3 questionable postoperative neurological changes noted by the nursing staff upon admission to the ICU, hence CT of the brain was unremarkable, and a neurological consultation was canceled. Postextubation neurological exam was relatively unremarkable. Plan: The patient was seen and evaluated by Dr. Dickens. His chest x-ray and labs were reviewed. He is stable from the pulmonary standpoint. He is again encouraged regarding increased use of the incentive spirometer and cough and deep breathing exercises. We'll increase his activity as tolerated. Continue to follow.
--- NOTE | 2017-01-20 14:31 | P.PN ---
Progress Note - Text The patient is resting comfortably in his bed. He denies a significant abdominal pain. On exam his vital signs are stable. His abdomen soft. His incision sites are clean dry and intact. Status post laparoscopic appendectomy and acute reintubation for negative pressure pulmonary edema. Patient is doing well. Hopefully be discharged home the next 2 days.
[2017-01-20] MEDS: ERTAPENEM 1 GM in SODIUM CHLORIDE 0.9% 50 ML IVPB SCH (16:56)
[2017-01-20] MEDS ORDERED: POTASSIUM CHLORIDE ER 20 MEQ TAB.ER PO STA (19:07)
[2017-01-20] MEDS: MAGNESIUM SULFATE-D5W PMX 1 GM in DEXTROSE/WATER 1 100ML.BAG IVPB SCH ×2 (20:07→21:19)
[2017-01-20] MEDS ORDERED: Potassium Replacement Protocol 1 EACH MISC MISCELLANE PRN (22:46)
[2017-01-20] MEDS ORDERED: POTASSIUM CHLORIDE ER 20 MEQ TAB.ER PO ONE (23:00)
[2017-01-21] MEDS: HYDROcodone/APAP 5-325MG 1 EACH TAB PO PRN ×4 (01:55→23:09)
[2017-01-21] MEDS ORDERED: POTASSIUM CHLORIDE ER 20 MEQ TAB.ER PO ONE (04:00)
[2017-01-21] MEDS: SODIUM CHLORIDE 0.9% 1,000 ML IV SCH ×3 (07:09→17:45)
[2017-01-21 07:36] LABS: Magnesium 1.9 mg/dL (1.6-2.3); Potassium 4.2 mmol/L (3.5-5.1)
--- NOTE | 2017-01-21 09:18 | P.PN ---
Progress Note - Text The patient is resting in his bed. He has some minimal incisional pain. He is actually feeling better than yesterday. On exam his vital signs are stable. Abdomen soft incision sites are clean and intact. Status post laps have appendectomy with negative pressure pulmonary edema requiring intubation. Patient is doing better. He will hopefully discharge home tomorrow.
[2017-01-21] MEDS: PANTOPRAZOLE 40 MG TABLET PO SCH (09:33)
--- NOTE | 2017-01-21 09:33 | XR ---
EXAMINATION TYPE: XR chest 1V portable DATE OF EXAM: 01/21/2017 HISTORY: pulm edema. REFERENCE: Previous study dated 01/20/2017. FINDINGS: The lungs are clear. Pleural spaces are clear. Heart size is normal. IMPRESSION: NO ACUTE INTRATHORACIC ABNORMALITY.
[2017-01-21] MEDS: MAGNESIUM SULFATE-D5W PMX 1 GM in DEXTROSE/WATER 1 100ML.BAG IVPB SCH ×2 (11:18→13:18)
--- NOTE | 2017-01-21 14:15 | P.PN ---
Subjective Principal diagnosis: Postoperative respiratory failure secondary to negative pressure pulmonary edema This is a 22-year-old white male presented earlier today to the emergency room with severe abdominal pain of one and a half days in duration. CT of the abdomen was suggestive of acute appendicitis. Patient was in severe pain almost doubling over earlier before presenting to the ER. Patient was seen by Dr. Betancourt on consultation, and he underwent laparoscopic appendectomy. And her operative report, the patient was found to have acute appendicitis with separation, some exudate and cloudy fluid was noted in that the colic gutter and cul-de-sac. His intraoperative course was uneventful. Patient was sent to recovery, and he was extubated shortly after. However he developed worsening respiratory distress post extubation, and his chest x-ray showed evidence of pulmonary edema, felt to be most likely noncardiogenic in nature, and most likely it is a negative pressure pulmonary edema. Although the possibility of acute lung injury is not entirely ruled out, but felt to be less likely. Patient was reintubated shortly after he was extubated, I was notified about the patient's from anesthesia staff, and arrangements were made to transfer the patient to the ICU. Upon arrival to the ICU, patient was noted to be on the hypotensive side, hence I was notified and I recommended fluid boluses. Patient was also noted to have some posturing and the nurse taking care of the patient was concerned about inferior drooping of the left eyeball. Based on the information given to me by the nurse taking care of the patient, I recommended immediate neurological consultation, CT of the brain, and I came in to evaluate the patient. Upon my arrival, patient was on propofol drip, I placed the drip on hold for about 10 minutes, patient was awakened, he was admitted agitated, but he was able to follow simple instructions, no significant neurological findings were noted. Patient will be placed back on propofol at a lower dose, and we will continue antibiotics as ordered by the admitting physician/Kayla. Patient received earlier in the ER some Unasyn and Flagyl. Patient was reevaluated today on 01/19/2017, family members were at bedside, patient remained on mechanical ventilation overnight. Chest x-ray is showing improvement in his pulmonary edema, but not completely resolved. Clinically the patient was doing well, and his weaning parameters were good. Patient has been off propofol for the last few hours, and he was doing well on CPAP. After reviewing the chest x-ray, and reviewing his labs, I discussed his condition with family members including his mother, and went ahead and extubated the patient. I remained at bedside evaluating the patient post extubation, and he tolerated the extubation quite well. Neurologically, the patient had no focal neurologic deficits. Chest x-ray continues to bother me but definitely improved compared to chest x-ray post surgery yesterday. Labs were reviewed, CBC was relatively unremarkable. ABG earlier was reviewed and was unremarkable. Basic metabolic profile was also reviewed and unremarkable. She is seen again today 01/20/2017 in follow-up in the surgical floor. He is awake and alert in no acute distress. He is maintaining good O2 saturations in the low 90s on room air. His chest x-ray reveals resolution the bilateral infiltrates. He's been afebrile. Blood cultures reveal no growth. He is maintained on ertapenem. No leukocytosis. Hemoglobin stable at 11.4. Reevaluated today on 01/21/2017, patient has no pulmonary symptoms whatsoever, no cough no wheezing no shortness of breath, and his chest x-ray is back to normal. No evidence of infiltrate and no evidence of edema. Patient is asymptomatic. And I will clear him to be discharged home in the next 24 hours if cleared by surgery. Objective - Vital Signs Vital signs: Vital Signs Temp 97.8 F 01/21/17 13:27 Pulse 71 01/21/17 13:27 Resp 17 01/21/17 13:27 BP 117/73 01/21/17 13:27 Pulse Ox 95 01/21/17 13:27 Intake & Output 01/20/17 01/21/17 01/21/17 18:59 06:59 18:59 Intake Total 2130 2000 Output Total 80 545 40 Balance -80 1585 1960 Intake: IV 1050 750 Sodium Chloride 0.9% 1, 1050 750 000 ml @ 100 mls/hr IV . Q10H [facility] Rx#:[id number] Intake, IV Titration 200 250 Amount Ertapenem 1 gm In Sodium 50 Chloride 0.9% 50 ml @ 100 mls/hr IVPB Q24H [facility] Rx# :[id number] Magnesium Sulfate-D5w Pmx 200 1 gm In Dextrose/Water 1 100ml.bag @ 100 mls/hr IVPB Q1H [facility] Rx#: [id number] Magnesium Sulfate-D5w Pmx 200 1 gm In Dextrose/Water 1 100ml.bag @ 100 mls/hr IVPB Q1H [facility] Rx#: [id number] Oral 880 1000 Output: Drainage 80 95 40 Abdomen 80 95 40 Urine 450 Other: Voiding Method Toilet Toilet # Voids 1 - Exam Physical Exam: Revealed a 22-year-old white male in no distress HEENT:[Neck is supple.] [No neck masses.] [No thyromegaly.] [No JVD.] Chest: [Clear throughout, no crackles or rhonchi or wheezes. Cardiac Exam: [Normal S1 and S2, no S3 gallop, no murmur.] Abdomen: [Postsurgical, Soft, nontender, no megaly, no rebound, no guarding, diminished bowel sounds] Extremities: [No clubbing, no edema, no cyanosis.] Neurological Exam: No gross focal neurologic deficit - Labs CBC & Chem 7: 01/20/17 07:03 01/21/17 06:56 Labs: Microbiology - Last 24 Hours (Table) 01/18/17 07:45 Blood Culture - Preliminary Blood No Growth after 72 hours 01/18/17 23:28 Blood Culture - Preliminary Blood No Growth after 48 hours Assessment and Plan Plan: 1 postoperative respiratory failure requiring reintubation and mechanical ventilation, secondary to negative pressure pulmonary edema, chest x-ray is reassuring today, and as expected on his pulmonary edema findings did resolve. On 01/20/2017 the patient's chest x-ray shows resolution of the by basilar infiltrates. On 01/21/2017, chest x-ray is completely clear and normal. 2 status post laparoscopic appendectomy for acute appendicitis, postoperative day #3 Recommendation: Consider discharge planning in the next 24 hours, antibiotics if needed are to be addressed by the surgical service. Time with Patient: Less than 30
[2017-01-21] MEDS: ERTAPENEM 1 GM in SODIUM CHLORIDE 0.9% 50 ML IVPB SCH (16:24)
[2017-01-21 21:29] VITALS: RESP 16
[2017-01-22] MEDS: SODIUM CHLORIDE 0.9% 1,000 ML IV SCH (06:05)
[2017-01-22 07:01] LABS: Magnesium 1.8 mg/dL (1.6-2.3); Potassium 4.1 mmol/L (3.5-5.1)
[2017-01-22 07:17] VITALS: BP 115/67; PULSE 60; TEMP 98
[2017-01-22] MEDS: PANTOPRAZOLE 40 MG TABLET PO SCH (07:42)
[2017-01-22] MEDS: HYDROcodone/APAP 5-325MG 1 EACH TAB PO PRN (07:44)
[2017-01-22] MEDS ORDERED: BISACODYL 5 MG TABLET.DR PO STA (08:16)
[2017-01-22] MEDS: MAGNESIUM SULFATE-D5W PMX 1 GM in DEXTROSE/WATER 1 100ML.BAG IVPB SCH ×2 (09:12→10:46)
--- NOTE | 2017-01-22 11:23 | P.PN ---
Subjective Progress note dated 01/22/2017 This is a 22-year-old white male with a history of postoperative respiratory failure requiring reintubation and mechanical ventilation secondary to negative pressure pulmonary edema. The patient was seen by my partner. Doing relatively well. He status post laparoscopic appendectomy postop day #4. The patient's mother is in the room. I encouraged him to do deep breathing coughing and clearing of secretions and to continue to use his incentive spirometer every hour while awake. He is not requiring any supplemental oxygen. Respiratory status and hemodynamic status is stable at the current time. Discharge in the next 24-48 hours. Objective - Vital Signs Vital signs: Vital Signs Temp 98 F 01/22/17 07:15 Pulse 60 01/22/17 07:15 Resp 16 01/22/17 07:15 BP 115/67 01/22/17 07:15 Pulse Ox 99 01/22/17 07:15 Intake & Output 01/21/17 01/22/17 01/22/17 18:59 06:59 18:59 Intake Total 2000 800 Output Total 40 50 Balance 1960 800 -50 Intake: IV 750 800 Sodium Chloride 0.9% 1, 750 800 000 ml @ 100 mls/hr IV . Q10H [facility] Rx#:[id number] Intake, IV Titration 250 Amount Ertapenem 1 gm In Sodium 50 Chloride 0.9% 50 ml @ 100 mls/hr IVPB Q24H [facility] Rx# :[id number] Magnesium Sulfate-D5w Pmx 200 1 gm In Dextrose/Water 1 100ml.bag @ 100 mls/hr IVPB Q1H [facility] Rx#: [id number] Oral 1000 Output: Drainage 40 50 Abdomen 40 50 Other: Voiding Method Toilet # Voids 1 - Exam No acute distress, oriented 3. Not requiring any supplemental oxygen. HEENT examination is grossly unremarkable. Mixed membranes are moist. No oral lesions. Neck supple. Full range of motion. No adenopathy or thyromegaly. Neck veins are flat. Cardiovascular examination reveals regular rhythm rate. S1-S2 normal. No S3- S4 or murmur. Lungs are clear breath sounds are equal. No wheezes rhonchi or crackles. Abdomen is soft. Bowel sounds are heard. Extremities are intact. No cyanosis clubbing or edema. Skin without rash. Neurologic examination nonfocal. - Labs CBC & Chem 7: 01/20/17 07:03 01/22/17 06:18 Labs: Microbiology - Last 24 Hours (Table) 01/18/17 07:45 Blood Culture - Preliminary Blood No Growth after 96 hours 01/18/17 23:28 Blood Culture - Preliminary Blood No Growth after 72 hours Assessment and Plan (1) Acute appendicitis Status: Acute (2) Non-cardiogenic pulmonary edema Status: Acute Plan: Plan dated 01/22/2017 The patient is doing well. I continue to recommend incentive spirometer every hour while awake. The patient should also take deep breaths clearing any secretions. The patient seemed be doing relatively well. Respiratory status and hemodynamic status is stable. The patient may be ready for discharge. Time with Patient: Less than 30
--- NOTE | 2017-01-30 10:06 | DS ---
DISCHARGE SUMMARY DATE OF ADMISSION: 01/18/2017 DATE OF DISCHARGE: 01/22/2017 ADMISSION DIAGNOSES: 1. Acute appendicitis, acute suppurative appendicitis. 2. Negative pressure pulmonary edema with respiratory failure. DISCHARGE DIAGNOSES: 1. Acute appendicitis, acute suppurative appendicitis. 2. Negative pressure pulmonary edema with respiratory failure. SURGEON: Dr. Betancourt. CONSULTING: Dr. Dickens. HISTORY: Sterling is a 22-year-old man presented with abdominal pain. Workup in the emergency department was suggestive of acute appendicitis. He was taken to the OR, where he underwent laparoscopic appendectomy. He had acute appendicitis with quite a bit of suppurative material, which was irrigated and aspirated and a drain was placed. In the immediate postoperative period, while he was being extubated, he developed respiratory failure, felt to be due to negative pressure pulmonary edema. He required re- intubation. He was kept in the ICU overnight and seen by Pulmonary. He did have some eye droop noted and a CT scan was done, which was unremarkable. He was quickly able to be taken off the ventilator given pulmonary toilet and antibiotics and by 01/22 he was doing well and felt to be stable for discharge. FINAL DISPOSITION: Discharged home with prescription for Augmentin and hydrocodone for pain. To continue using the incentive spirometer for a week. Follow up in my office in a week. Call if he had any questions or concerns. See Dr. Hutchinson for followup. MMODL / IJN: [id number] /
== END 2017-01-22 12:54 | disposition home or self-care (01) | DRG 341 ==
LOC: EC 07:31 → 5MS5E 10:02 → 6ICU 20:21 → 3SUR 01-19 19:37
PROVIDERS: ADMIT Surgery; ATTEND Surgery
PROC: 0BH17EZ Insertion of Endotracheal Airway into Trachea, Via Natural or Artificial Opening (ICD-10-PCS; 2017-01-18)
PROC: 5A1935Z Respiratory Ventilation, Less than 24 Consecutive Hours (ICD-10-PCS; 2017-01-18)
PROC: 0DTJ4ZZ Resection of Appendix, Percutaneous Endoscopic Approach (ICD-10-PCS; principal; 2017-01-18 07:30)
DX: K35.80 Unspecified acute appendicitis (principal); J95.821 Acute postprocedural respiratory failure; J81.0 Acute pulmonary edema; I95.9 Hypotension, unspecified; R45.1 Restlessness and agitation
CPT/HCPCS: 36415; 36600; 70450; 71010; 74177; 80048; 80053; 81001; 82150; 82805; 83605; 83690; 83735; 84100; 84132; 84439; 84443; 85025; 85027; 85610; 85730; 86850; 86900; 86901; 87040; 88304; 94002; 94003; 96361; 96365; 96375; 99285